=== PATIENT | female | born 1950 | race Hispanic/Latino ===

== ENCOUNTER 2018-03-03 08:31 | Emergency (ER) | payer MEDICARE, OTHER ==
[2018-03-03 08:50] VITALS: BP 168/56
[2018-03-03] MEDS ORDERED: NORCO 5/325 PO ONE (09:31)
--- NOTE | 2018-03-03 09:36 | Emergency Department Report ---
ED Fall HPI - General Chief Complaint: Pain General Stated Complaint: SORE FROM A FALL Time Seen by Provider: 03/03/18 09:22 Source: patient Mode of arrival: Wheelchair - History of Present Illness Initial Comments: 67-year-old female with pain to left chest wall status post fall in bathtub. Patient states she slipped while trying to get out of the bed that last night. States she fell down onto the edge of that up and landed on her left chest wall. He has not taken anything for pain. Denies shortness of breath. Complaint: fall -: Last night Fall From: standing When Fall Occurred: other (last night) Fall Witnessed: no Place Fall Occurred: home Loss of Consciousness: none Prolonged Down Time?: no Symptoms Prior to Fall: none Location: chest Severity: moderate Quality: aching Context: tripped/slipped Associated Symptoms: chest paint. denies: headache, neck pain, shortness of breath, abdominal pain - Related Data Home Medications Medication Instructions Recorded Confirmed Last Taken Cholecalciferol Vit D3 [Vitamin D3] 1 tab PO QDAY 12/09/14 12/09/14 12/08/14 Furosemide 20 mg PO QDAY 12/09/14 12/09/14 12/08/14 Lisinopril 10 mg PO QDAY 12/09/14 12/09/14 12/08/14 Metoprolol [Lopressor] 25 mg PO BID 12/09/14 12/09/14 12/08/14 NIFEdipine [NIFEdipine ER] 60 mg PO QDAY 12/09/14 12/09/14 12/09/14 Omeprazole [PriLOSEC] 20 mg PO QDAY 12/09/14 12/09/14 12/08/14 Potassium Chloride [Klor-Con M10] 10 meq PO QDAY 12/09/14 12/09/14 12/08/14 Previous Rx's Medication Instructions Recorded Last Taken Type HYDROcodone/APAP 5-325 [[place] 1 each PO Q6HR PRN #7 tablet 03/03/18 Unknown Rx 5/325] Allergies Allergy/AdvReac Type Severity Reaction Status Date / Time No Known Allergies Allergy Verified 12/09/14 09:21 ED Review of Systems ROS: Stated complaint: SORE FROM A FALL Other details as noted in HPI Comment: All other systems reviewed and negative Respiratory: denies: shortness of breath Cardiovascular: chest pain Gastrointestinal: denies: abdominal pain Musculoskeletal: denies: back pain Neurological: denies: headache ED Past Medical Hx - Past Medical History Hx Hypertension: Yes Hx Heart Attack/AMI: No Hx Congestive Heart Failure: No Hx GERD: Yes Hx Arthritis: Yes (generalized) Hx Headaches / Migraines: Yes (headaches with bright lights) - Surgical History Past Surgical History?: Yes Additional Surgical History: Right elbow, Breast Bx, Left Hip replacement - Social History Smoking Status: Never Smoker Substance Use Type: Alcohol - Medications Home Medications: Home Medications Medication Instructions Recorded Confirmed Last Taken Type Cholecalciferol Vit D3 [Vitamin D3] 1 tab PO QDAY 12/09/14 12/09/14 12/08/14 History Furosemide 20 mg PO QDAY 12/09/14 12/09/14 12/08/14 History Lisinopril 10 mg PO QDAY 12/09/14 12/09/14 12/08/14 History Metoprolol [Lopressor] 25 mg PO BID 12/09/14 12/09/14 12/08/14 History NIFEdipine [NIFEdipine ER] 60 mg PO QDAY 12/09/14 12/09/14 12/09/14 History Omeprazole [PriLOSEC] 20 mg PO QDAY 12/09/14 12/09/14 12/08/14 History Potassium Chloride [Klor-Con M10] 10 meq PO QDAY 12/09/14 12/09/14 12/08/14 History HYDROcodone/APAP 5-325 [[place] 1 each PO Q6HR PRN #7 tablet 03/03/18 Unknown Rx 5/325] ED Physical Exam - General Limitations: No Limitations General appearance: alert, in no apparent distress - Head Head exam: Present: atraumatic, normocephalic - Eye Eye exam: Present: normal appearance - ENT ENT exam: Present: mucous membranes moist - Neck Neck exam: Present: normal inspection. Absent: tenderness - Respiratory Respiratory exam: Present: normal lung sounds bilaterally, chest wall tenderness (tenderness to left lateral chest wall, no ecchymosis present, no crepitus palpated). Absent: respiratory distress - Cardiovascular Cardiovascular Exam: Present: regular rate, normal rhythm - GI/Abdominal GI/Abdominal exam: Present: soft. Absent: tenderness - Extremities Exam Extremities exam: Present: normal inspection - Neurological Exam Neurological exam: Present: alert, oriented X3 - Psychiatric Psychiatric exam: Present: normal affect, normal mood - Skin Skin exam: Present: warm, dry, intact, normal color ED Course Vital Signs 03/03/18 08:35 Temperature 98.1 F Pulse Rate 67 Respiratory 20 Rate Blood Pressure 168/56 O2 Sat by Pulse 98 Oximetry ED Medical Decision Making - Radiology Data Radiology results: report reviewed - Medical Decision Making 67-year-old female presents with chest wall pain after fall while getting out of the bathtub. Chest x-ray shows ninth rib fracture, no pneumothorax. O2 sats normal, no significant splinting. Patient reports relief of pain with one tab of [place]. Will provide incentive spirometer and instructions on how to use. Pt reports she has used one in the past. The patient is advised to return to ER if she experiences any trouble breathing, fever, cough. Patient has follow-up with PCP this week. - Differential Diagnosis chest wall contusion, rib fx, PTX Critical care attestation.: If time is entered above; I have spent that time in minutes in the direct care of this critically ill patient, excluding procedure time. ED Disposition Clinical Impression: Left rib fracture Disposition: DC-01 TO HOME OR SELFCARE Is pt being admited?: No Condition: Stable Instructions: Rib Fracture (ED), How to Use an Incentive Spirometer (ED) Additional Instructions: You have a fracture of your 9th rib on the left side. Use incentive spirometer as instructed. Follow-up with your PCP this week. Return to ER if you experience trouble breathing, cough, fever. Prescriptions: HYDROcodone/APAP 5-325 [[place] 5/325] 1 each PO Q6HR PRN #7 tablet PRN Reason: Pain Referrals: PRIMARY CARE,MD [Primary Care Provider] - 3-5 Days Time of Disposition: 11:38
--- NOTE | 2018-03-03 11:29 | XRay Report ---
FINAL REPORT EXAM: XR RIBS UNI W PA CHEST 3+V LT HISTORY: fall TECHNIQUE: Frontal chest radiograph. Four views of the left ribs. PRIORS: None. FINDINGS: Aortic calculi are seen. The cardiomediastinal silhouette is normal. No focal consolidation. No pleural effusion. No pneumothorax. There is an acute left posterior 9th rib fracture. IMPRESSION: No acute cardiopulmonary process. Acute left posterior 9th rib fracture.
== END 2018-03-03 12:20 | disposition home or self-care (01) ==
LOC: ED 08:31
DX: S22.32XA Fracture of one rib, left side, initial encounter for closed fracture (principal); I10 Essential (primary) hypertension; K21.9 Gastro-esophageal reflux disease without esophagitis; M19.90 Unspecified osteoarthritis, unspecified site; G43.909 Migraine, unspecified, not intractable, without status migrainosus; W18.2XXA Fall in (into) shower or empty bathtub, initial encounter; Y93.89 Activity, other specified; Y92.89 Other specified places as the place of occurrence of the external cause; Y99.8 Other external cause status
CPT/HCPCS: 99283